=== PATIENT | male | born 1930 | race Caucasian/White ===

== ENCOUNTER 2018-11-16 19:49 | Emergency (ER) | payer SELFPAY ==
[~2018-11-16] VITALS: Ht 162.6 cm; Wt 73.0 kg
[2018-11-16] MEDS ORDERED: TRANEXAMIC ACID 1,000 MG/10 ML IV ONE (20:30)
[2018-11-16] MEDS ORDERED: AMOXICILLIN/POTASSIUM CLAVULANATE 875/125MG TAB PO ONE (23:45)
[2018-11-17 00:01] VITALS: BP 153/111
== END 2018-11-17 00:08 | disposition home or self-care (01) ==
LOC: ER 19:49
DX: R04.0 Epistaxis (principal); E11.9 Type 2 diabetes mellitus without complications; E78.00 Pure hypercholesterolemia, unspecified; I10 Essential (primary) hypertension; Z98.890 Other specified postprocedural states
CPT/HCPCS: 30901; 96374; 99283; Z7610